=== PATIENT | male | born 1945 | race Caucasian/White ===

== ENCOUNTER → 2018-02-04 07:08 | Outpatient (CLI) | payer OTHER, SELFPAY ==
[2018-02-04 08:28] LABS: Cholesterol 174 mg/dL (140-199); HDL Cholesterol 46 mg/dL (40-60); LDL Cholesterol Calculated 105 mg/dL (<100); Triglycerides 116 mg/dL (35-150)
== END ==
PROVIDERS: PCP Family Medicine; Visit Provider Family Medicine
DX: E78.2 Mixed hyperlipidemia (principal)
CPT/HCPCS: 36415; 80061

== ENCOUNTER 2018-02-04 10:52 | Emergency (ER) | payer OTHER, SELFPAY ==
--- NOTE | 2018-02-04 10:58 | ED.MALEGU ---
HPI - Male Genitourinary General Chief complaint: Urogenital-Male Stated complaint: LUMP ON RIGHT TESTICLE Time Seen by Provider: 02/04/18 10:56 Source: patient Mode of arrival: ambulatory Limitations: no limitations History of Present Illness HPI Narrative: 72-year-old male here for evaluation of a tender mass located just above his right testicle. Patient states that all of his symptoms started several weeks ago while he was on a volunteer trip to [place]. He states that it started with scrotal swelling. That resolved and that is when he felt tenderness and a mass on his right testicle. Went to his primary doctor who diagnosed him with epididymitis and placed him on Levaquin. He states that he has completed this course of Levaquin but the mass has not resolved or improved. Denies any urinary symptoms. Denies any bowel symptoms. No prior hernia surgeries. Related Data Home Medications Medication Instructions Recorded Confirmed atorvastatin [Lipitor] 10 mg PO QPM 02/04/18 02/04/18 Previous Rx's Medication Instructions Recorded fluconazole 150 mg tablet 150 mg PO QWEEK 28 Days #4 tab 01/26/18 Allergies Allergy/AdvReac Type Severity Reaction Status Date / Time kale Allergy hives Uncoded 01/26/18 08:35 Review of Systems Constitutional Denies fever(s) Cardiovascular Denies chest pain and Denies dyspnea Respiratory Denies dyspnea Gastrointestinal Gastrointestinal: Denies abdominal pain, Denies change in bowel habits, Denies constipation, Denies diarrhea, Denies nausea and Denies vomiting Genitourinary Denies difficulty urinating, Denies dysuria, Reports scrotal swelling, Reports testicular mass, Denies urinary frequency, Denies urinary hesitancy, Denies urinary incontinence and Denies urinary urgency Musculoskeletal Denies abnormal gait, Denies myalgias and Denies arthralgias Integumentary/Breasts Denies lesions and Denies rash Neurologic Denies abnormal gait and Denies behavioral changes Psychiatric Denies behavioral changes Hematologic/Lymphatic Denies easy bleeding and Denies easy bruising [facility] Medical History Colon polyps (Chronic ~2007) Seasonal allergies (Chronic ~1972) Chicken pox (Resolved) Measles (Resolved) Surgical History Anesthesia (Resolved) History of third molar tooth extraction (~1999) History of tonsillectomy (~1949) Family History Father Stroke Social History Smoking Status: Current some day smoker Exam Initial Vital Signs Initial Vital Signs: Vital Signs Temperature 98.4 F 02/04/18 11:00 Pulse Rate 67 02/04/18 11:00 Respiratory Rate 20 02/04/18 11:00 Blood Pressure 154/96 H 02/04/18 11:00 Pulse Oximetry 95 02/04/18 11:00 Const General: cooperative, healthy appearing, comfortable, well developed, well groomed and No acute distress Orientation: alert, awake and oriented x3 HENMT Head: normal to inspection and normocephalic Resp Effort & Inspection: normal respiratory effort GI Inspection: normal to inspection and abdominal wall ecchymosis Penis: normal penis, no pustules and no swelling Other: Bilateral testes distended. Cremasteric reflex positive bilaterally. Does have a tender nodule located superior to the right testicle which does not appear to be congruent with the testicle. This is the source of his pain. Skin Lesions: no lesions Rashes: no rashes Neuro General: alert, awake and oriented x3 Extrem General: capillary refill normal Course Orders Ordered: ED Orders 02/04/18 11:14 US scrotum Stat Vital Signs - 8 hr 02/04/18 11:00 Temperature 98.4 F Pulse Rate 67 Respiratory Rate 20 Blood Pressure 154/96 H Pulse Oximetry 95 MDM - Male Genitourinary Imaging Data Testicular ultrasound: Radiologist's impression: [place] [address] Ultrasound Report Signed Patient: Marques Bailey GMR#: [id number] : 4Acct:[id number] Age/Sex: 72 / MDate of Service: 02/04/18 Loc: ED Accession Number: [id number] Procedure: US scrotum Ordering Provider: Low Dia D.O. PROCEDURE: US SCROTUM INDICATIONS: Right superior testicular mass with pain TECHNIQUE: Real-time scanning was performed of the scrotum and testicles, with image documentation. Color and pulse Doppler interrogation was performed of both testicles. COMPARISON: None. FINDINGS: Right: Testicle is normal in size at 2.6 x 3.2 x 5.2 cm, and homogenous in echotexture. Epididymis contains a lobulated cyst, with several internal cysts the largest of which measures up to 1.1 cm in dimension.. No hydrocele or varicoceles. Overlying scrotal skin is normal in thickness. Left: Testicle is normal in size at 2.1 x 3.3 x 3.7 cm, and homogeneous in echotexture. Epididymis is normal in overall size and morphology. No hydrocele there is a small left-sided varicocele. Overlying scrotal skin is normal in thickness. Doppler: Color and pulse Doppler demonstrate normal and symmetric arterial flow in both testicles. IMPRESSION: Right-sided cystic structure contains internal cysts, with an overall dimension measuring up to 1.5 cm and the largest internal cyst of 1.0 cm. Continued clinical followup is recommended and followup testicular ultrasound in 6 months is recommended unless clinically indicated sooner to assess for stability of appearance over time at the right epididymal cystic structure. Incidental load is made of a small superior left-sided varicocele that is visualized during Valsalva maneuver. Dictated by: Ramon Lezama M.D. on 02/04/2018 at 12:54 Approved by: Ramon Lezama M.D. on 02/04/2018 at 13:00 [facility] Narrative Medical decision making narrative: Ultrasound shows normal testicle on the right. His physical exam is not consistent with a an inguinal hernia. Cremaster reflex positive on the right. Doubt torsion. Discussed the ultrasound findings with the patient. He will call his primary care doctor on Wednesday to discuss urology referral. Discharge Plan Departure Patient Disposition: Home Clinical Impression: Pain, scrotum Activity Restrictions/Additional Instructions: Recommend that you contact your primary care doctor's office on Wednesday for a follow-up and to discuss the indications for referral to see Urology. Take ibuprofen/Motrin for any discomfort. Recommend that you wear supportive clothing. Return to the emergency department for any new or worsening symptoms Prescriptions: No Action fluconazole 150 mg tablet 150 mg PO QWEEK 28 Days Qty: 4 RF: 0 atorvastatin [Lipitor] 10 mg tablet 10 mg PO QPM RF: 0
[2018-02-04 11:00] VITALS: BP 154/96; PULSE 67; RESP 20; TEMP 36.9; O2SAT 95
--- NOTE | 2018-02-04 11:14 | DI.US.S_ITS ---
PROCEDURE: US SCROTUM INDICATIONS: Right superior testicular mass with pain TECHNIQUE: Real-time scanning was performed of the scrotum and testicles, with image documentation. Color and pulse Doppler interrogation was performed of both testicles. COMPARISON: None. FINDINGS: Right: Testicle is normal in size at 2.6 x 3.2 x 5.2 cm, and homogenous in echotexture. Epididymis contains a lobulated cyst, with several internal cysts the largest of which measures up to 1.1 cm in dimension.. No hydrocele or varicoceles. Overlying scrotal skin is normal in thickness. Left: Testicle is normal in size at 2.1 x 3.3 x 3.7 cm, and homogeneous in echotexture. Epididymis is normal in overall size and morphology. No hydrocele there is a small left-sided varicocele. Overlying scrotal skin is normal in thickness. Doppler: Color and pulse Doppler demonstrate normal and symmetric arterial flow in both testicles. IMPRESSION: Right-sided cystic structure contains internal cysts, with an overall dimension measuring up to 1.5 cm and the largest internal cyst of 1.0 cm. Continued clinical followup is recommended and followup testicular ultrasound in 6 months is recommended unless clinically indicated sooner to assess for stability of appearance over time at the right epididymal cystic structure. Incidental load is made of a small superior left-sided varicocele that is visualized during Valsalva maneuver. Dictated by: Ramon Lezama M.D. on 02/04/2018 at 12:54 Approved by: Ramon Lezama M.D. on 02/04/2018 at 13:00
[2018-02-04 13:31] VITALS: BP 136/80; PULSE 66; RESP 17; TEMP 36.7; O2SAT 96
== END 2018-02-04 13:33 | disposition home or self-care (01) ==
PROVIDERS: Emergency Provider Emergency Medicine; PCP Family Medicine
DX: N50.82 Scrotal pain (principal)
CPT/HCPCS: 76870; 99282; 99283

== ENCOUNTER 2018-08-24 22:28 | Emergency (ER) | payer OTHER, SELFPAY ==
[2018-08-24 22:32] VITALS: BP 160/113; PULSE 90; TEMP 36.8; O2SAT 94
[2018-08-24] MEDS: ALBUTEROL/IPRATROPIUM 3 ML AMPUL INH ×3 (22:40→23:03)
--- NOTE | 2018-08-24 22:55 | ED.ASTHMA ---
HPI - Asthma General Chief Complaint: Asthma Stated Complaint: DIFFICULTY BREATHING Time Seen by Provider: 08/24/18 22:45 Source: patient Mode of arrival: ambulatory Limitations: no limitations History of Present Illness HPI Narrative: Patient is a 73-year-old male here for evaluation of wheezing and shortness of breath. He states he does not carry a diagnosis of asthma however he states that every spring he develops wheezing. Has been using his 's albuterol. No fevers. He is on Emelia which he states normally helps his symptoms. No chest pain. No recent travel. No rashes. Related Data Previous Rx's Medication Instructions Recorded atorvastatin 10 mg tablet 10 mg PO QPM #90 tab 05/19/18 prednisone 40 mg PO DAILY 4 Days #8 tab 08/25/18 Allergies Allergy/AdvReac Type Severity Reaction Status Date / Time kale Allergy hives Uncoded 03/02/18 08:30 Review of Systems Constitutional Denies fatigue Cardiovascular Denies chest pain and Reports dyspnea Respiratory Reports dyspnea Gastrointestinal Gastrointestinal: Denies abdominal pain, Denies nausea and Denies vomiting Integumentary/Breasts Denies rash Neurologic Denies behavioral changes Psychiatric Denies behavioral changes Endocrine Denies fatigue Hematologic/Lymphatic Denies easy bleeding and Denies easy bruising Exam Initial Vital Signs Initial Vital Signs: Vital Signs Temperature 98.2 F 08/24/18 22:32 Pulse Rate 90 08/24/18 22:32 Blood Pressure 160/113 H 08/24/18 22:32 Pulse Oximetry 94 08/24/18 22:32 Const General: cooperative, well developed, well groomed and No acute distress Orientation: alert, awake and oriented x3 HENMT Head: normal to inspection and normocephalic Resp Effort & Inspection: cough, no retractions and tachypneic Auscultation: wheezes Cardio Rate: regular rate Rhythm: regular rhythm GI Inspection: non-distended Palpation: soft Skin Lesions: no lesions Rashes: no rashes Neuro General: alert, awake and oriented x3 Extrem General: normal to inspection and capillary refill normal Psych Appearance: grossly normal and well kempt [facility] Medical History Colon polyps (Chronic ~2007) Seasonal allergies (Chronic ~1972) Chicken pox (Resolved) Measles (Resolved) Surgical History Anesthesia (Resolved) History of third molar tooth extraction (~1999) History of tonsillectomy (~1949) Family History Father Stroke Social History Smoking Status: Current some day smoker Family History Father Stroke Social History Smoking Status: Current some day smoker Course Orders Ordered: Discontinued Medications Albuterol (Ventolin) 2.5 mg INH NOW ONE Stop: 08/24/18 23:03 Last Admin: 08/24/18 23:03 Dose: 2.5 mg Albuterol (Ventolin Hfa Prepack) 1 box MISC SEEINSTR ONE Stop: 08/24/18 23:40 Last Admin: 08/25/18 00:25 Dose: 1 box Albuterol/Ipratropium (Duoneb) 3 ml INH NOW ONE Stop: 08/24/18 22:52 Last Admin: 08/24/18 22:40 Dose: 3 ml Albuterol/Ipratropium (Duoneb) 3 ml INH NOW ONE Stop: 08/24/18 22:54 Last Admin: 08/24/18 22:55 Dose: 3 ml Albuterol/Ipratropium (Duoneb) 3 ml INH NOW ONE Stop: 08/24/18 23:03 Last Admin: 08/24/18 23:03 Dose: 3 ml Prednisone (Deltasone) 40 mg PO NOW ONE Stop: 08/24/18 23:40 Last Admin: 08/25/18 00:25 Dose: 40 mg Vital Signs - 8 hr 08/24/18 22:32 08/24/18 22:56 08/24/18 23:03 Temperature 98.2 F Pulse Rate 90 75 78 Respiratory Rate 14 14 Blood Pressure 160/113 H Pulse Oximetry 94 94 94 08/25/18 00:51 Temperature Pulse Rate 89 Respiratory Rate Blood Pressure 129/74 Pulse Oximetry 100 MDM - Asthma MDM Narrative Medical decision making narrative: The time I evaluated the patient he had received 3 DuoNeb someone albuterol neb. He stated that this helped his symptoms tremendously. Per report from the respiratory therapist this improved his wheezing tremendously. He did have some wheezing specially on the right when I listened to him. He was observed here in the emergency department for period of time afterwards without any return of the symptoms. He was given a dose of steroids here in the ER will send home with a prescription for these. He was also given a albuterol inhaler and AeroChamber and given instructions on its use. He was given return precautions. He expressed understanding and agreement with plan. Discharge Plan Departure Patient Disposition: Home Clinical Impression: Diffuse wheezing Discharge Date/Time: 08/25/18 00:52 Interventions: ED Discharge Assessment Last Done: 08/25/18 00:51 Instructions: DI for Reactive Airway Disease-Adult Activity Restrictions/Additional Instructions: Take the medications as directed. Contact your primary care doctor for follow-up. Return to the emergency department for any new or worsening symptoms Prescriptions: New prednisone 20 mg tablet 40 mg PO DAILY 4 Days Qty: 8 RF: 0 No Action atorvastatin [Lipitor] 10 mg tablet 10 mg PO QPM Qty: 90 RF: 1 Referrals: Nikko Jiménez MD [Primary Care Provider] -
[2018-08-24 22:56] VITALS: PULSE 75; RESP 14; O2SAT 94
[2018-08-24 23:03] VITALS: PULSE 78; RESP 14; O2SAT 94
[2018-08-24] MEDS: ALBUTEROL 2.5 MG/3 ML NEB (ADULT) INH (23:03)
[2018-08-25] MEDS: ALBUTEROL HFA PREPACK 1 BOX MISC (00:25)
[2018-08-25] MEDS: predniSONE 20 MG TABLET 40 MG PO (00:25)
[2018-08-25 00:51] VITALS: BP 129/74; PULSE 89; O2SAT 100
== END 2018-08-25 00:52 | disposition home or self-care (01) ==
PROVIDERS: Emergency Provider Emergency Medicine; Family Provider Family Medicine; PCP Family Medicine
DX: R06.2 Wheezing (principal)
CPT/HCPCS: 94640; 99282; 99284; J7613

== ENCOUNTER 2018-12-20 13:02 | Day surgery (SDC) | payer OTHER, SELFPAY ==
[2018-12-20] VITALS (8 sets, daily range): BP systolic 111–151; BP diastolic 65–90; PULSE 57–68; RESP 10–16; TEMP 36.4–37.2; O2SAT 93–94; BMI 29.5
[2018-12-20] MEDS: SODIUM CHLORIDE 0.9% 1,000 ML 100 ML IV (13:00)
--- NOTE | 2018-12-20 13:53 | PM.HP.1 ---
History of Present Illness Date Patient Seen: 12/20/18 Time Patient Seen: 13:58 Chief complaint: [id number] Narrative: 73-year-old man presents for screening colonoscopy, personal history of colon polyps last screening colonoscopy at least 10 years ago. He does not have a family history of colorectal cancer Tolerated his prep Patient History Family & Social History Social History: household members spouse Tobacco & Substance use: Smoking Status Current some day smoker Meds Home Medications Medication Instructions Recorded Confirmed Type albuterol sulfate HFA 90 2 puff INHALATION Q6H PRN 08/26/18 12/20/18 History mcg/actuation aerosol inhaler atorvastatin 10 mg tablet 10 mg PO QPM #90 tab 11/22/18 12/20/18 Rx Allergies Allergy/AdvReac Type Severity Reaction Status Date / Time kale Allergy hives Uncoded 12/20/18 13:35 Review of Systems Constitutional Constitutional: Denies fever(s) Eyes Eyes: Denies bulging eyes ENT Ears, Nose, Mouth, and Throat: No lip swelling Cardiovascular Cardiovascular: Denies generalize swelling Respiratory Respiratory: Denies stridor Gastrointestinal Gastrointestinal: Denies coffee ground emesis Musculoskeletal Musculoskeletal: Denies loss of height Integumentary/Breasts Skin/Breast: Denies wounds Neurologic Neurologic: Denies abnormal speech and Denies confusion Psychiatric Psychiatric: Denies confusion Endocrine Endocrine: Denies deepening of the voice Hematologic/Lymphatic Hematologic/Lymphatic: Denies lymphadenopathy Allergic/Immunologic Allergic/Immunologic: Denies lip swelling Exam Vital Signs (past 8 hours): - 12/20/18 13:30 Temperature 97.6 F Pulse Rate 68 Respiratory Rate 16 Blood Pressure 151/90 H Pulse Oximetry 94 Oxygen Delivery Method Room Air Const General: cooperative and healthy appearing Orientation: alert [facility] Head: normal to inspection Nose: nares normal Mouth: oral mucosae normal and lip normal Eyes Eyelids: eyelids normal Conjunctivae: conjunctivae normal Sclera: sclerae normal Neck Neck: supple and other (No thyromegally) Chest Chest: other (LCTAB , regular respiratory effort) Cardio Rhythm: regular rhythm Heart Sounds: S1 normal, S2 normal, no gallops, no murmurs and no rubs GI Other: Abdomen soft nontender nondistended Skin General: no rashes or lesions noted Neuro General: alert and awake Psych Appearance: grossly normal Affect: normal affect Assessment & Plan Assessment & Plan narrative: 73-year-old man well overdue for screening colonoscopy given prior history of colon polyps now presents for proceed Risks and benefits discussed risks including bleeding, perforation, , hypoxia, missed lesion all discussed All questions answered Patient rated proceed
--- NOTE | 2018-12-20 14:00 | P.HP_ITS ---
History of Present Illness Date Patient Seen: 12/20/18 Time Patient Seen: 13:58 Chief complaint: [id number] Narrative: 73-year-old man presents for screening colonoscopy, personal history of colon polyps last screening colonoscopy at least 10 years ago. He does not have a family history of colorectal cancer Tolerated his prep Patient History Family & Social History Social History: household members spouse Tobacco & Substance use: Smoking Status Current some day smoker Meds Home Medications Medication Instructions Recorded Confirmed Type albuterol sulfate HFA 90 2 puff INHALATION Q6H PRN 08/26/18 12/20/18 History mcg/actuation aerosol inhaler atorvastatin 10 mg tablet 10 mg PO QPM #90 tab 11/22/18 12/20/18 Rx Allergies Allergy/AdvReac Type Severity Reaction Status Date / Time kale Allergy hives Uncoded 12/20/18 13:35 Review of Systems Constitutional Constitutional: Denies fever(s) Eyes Eyes: Denies bulging eyes ENT Ears, Nose, Mouth, and Throat: No lip swelling Cardiovascular Cardiovascular: Denies generalize swelling Respiratory Respiratory: Denies stridor Gastrointestinal Gastrointestinal: Denies coffee ground emesis Musculoskeletal Musculoskeletal: Denies loss of height Integumentary/Breasts Skin/Breast: Denies wounds Neurologic Neurologic: Denies abnormal speech and Denies confusion Psychiatric Psychiatric: Denies confusion Endocrine Endocrine: Denies deepening of the voice Hematologic/Lymphatic Hematologic/Lymphatic: Denies lymphadenopathy Allergic/Immunologic Allergic/Immunologic: Denies lip swelling Exam Vital Signs (past 8 hours): - 12/20/18 13:30 Temperature 97.6 F Pulse Rate 68 Respiratory Rate 16 Blood Pressure 151/90 H Pulse Oximetry 94 Oxygen Delivery Method Room Air Const General: cooperative and healthy appearing Orientation: alert [facility] Head: normal to inspection Nose: nares normal Mouth: oral mucosae normal and lip normal Eyes Eyelids: eyelids normal Conjunctivae: conjunctivae normal Sclera: sclerae normal Neck Neck: supple and other (No thyromegally) Chest Chest: other (LCTAB , regular respiratory effort) Cardio Rhythm: regular rhythm Heart Sounds: S1 normal, S2 normal, no gallops, no murmurs and no rubs GI Other: Abdomen soft nontender nondistended Skin General: no rashes or lesions noted Neuro General: alert and awake Psych Appearance: grossly normal Affect: normal affect Assessment & Plan Assessment & Plan narrative: 73-year-old man well overdue for screening colonoscopy given prior history of colon polyps now presents for proceed Risks and benefits discussed risks including bleeding, perforation, , hypoxia, missed lesion all discussed All questions answered Patient rated proceed
[2018-12-20] MEDS: MIDAZOLAM 5 MG/5 ML VIAL IV ×2 (14:20→14:21)
[2018-12-20] MEDS: fentaNYL 250 MCG/5 ML INJ IV (14:21)
[2018-12-20] MEDS: GLUCAGON,HUMAN RECOMBINANT 1 MG/ML VIAL IV (14:43)
--- NOTE | 2018-12-20 15:08 | P.OP.ENDO_ITS ---
Operative Date/Time/Diagnoses Date of procedure: 12/20/18 Time of procedure: 15:00 Post-op diagnosis: same Procedure & Clinicians Study performed: Incomplete colonoscopy -to hepatic flexure Same procedure as scheduled: No Indications: 73-year-old man with history of colon polyps well overdue for screening colonoscopy, last well over 10 years ago Surgeon: Tobi Del Toro Procedure Notes SCOAP/Timeout: Completed Procedure in detail: Patient was taken to the endoscopy suite a time-out was completed. He was sedated over the entire course of procedure with a total of 8 mg of midazolam and 250 micro g of fentanyl. A digital rectal exam was per formed this was notable for a enlarged firm prostate without nodularity. No polyps or masses identified. 160 cm colonoscope was advanced through the anus folds of the rectum and through the colon. The colon was quite large and redundant there are multiple hairpin turns making navigation rather difficult. Eventually I was able to navigate into the triangular folds of the transverse colon. I was able to turn the corner of the hepatic flexure but not able to advance the scope beyond this due to absence of scope length. A scope stiffener was used, the patient was placed in decubitus positions as well as prone, and supine. The scope was withdrawn multiple times the level left colon and readvanced. These maneuvers failed to produce enough scope length to advance it any significance into the is ascending colon. The brief use of the ascending colon were without large masses. The scope was then slowly withdrawn visualizing from the hepatic flexure to the anus no mucosal based lesions were identified, there was a moderate amount of diverticulosis involving the transverse descending and sigmoid colons. No rectal masses Prep was adequate Scope was retroflexed in the distal rectum no additional lesions were seen Scope withdrawal time: NA Sedation minutes: 45 Findings: diverticulosis Specimen(s): none sent Complications: none Impression: Incomplete screening colonoscopy Enlarged prostate Moderate amount diverticulosis involving the transverse descending sigmoid colon Recommendations: Other recommendation (Double contrast barium enema -if this is without lesions next colonoscopy in 5 yrs) Plan for aftercare: Will need barium enema Follow up: as needed Disposition: PACU
--- NOTE | 2018-12-20 15:14 | SUR.PHASEI ---
Entered the PACU while report was being given to another RN, saw patient move extremity briefly, then returned to sleep. Has been sleeping since then. VSS.
--- NOTE | 2018-12-20 15:34 | SUR.PHASEI ---
aroused spontaneously to voice, HOB elevated, water given, denies discomfort.
--- NOTE | 2018-12-20 15:39 | SUR.PHASEI ---
Stable, drowsy, resp unlabored, prepared to go to [facility]
--- NOTE | 2018-12-20 15:55 | SUR.PHASEII ---
1550 Sitting up, talking with , reviewing report and asking appropriate questions. Told them that the dr office will be contacting them to schedule procedure. Stable
--- NOTE | 2018-12-20 16:09 | SUR.PHASEII ---
1601 To home w/; stable and pleasant. Continues to ask questions about outcome, told to call the doctors office tomorrow.
== END 2018-12-20 16:01 | disposition home or self-care (01) ==
PROVIDERS: PCP Family Medicine; Visit Provider Surgery
PROC: 0DJD8ZZ Inspection of Lower Intestinal Tract, Via Natural or Artificial Opening Endoscopic (ICD-10-PCS; CPT 45378; principal; 2018-12-20 14:00)
DX: Z86.010 Personal history of colon polyps (principal); K57.30 Diverticulosis of large intestine without perforation or abscess without bleeding
CPT/HCPCS: G0105; 99152; 99153; J1610; J2250; J3010

== ENCOUNTER → 2019-01-18 08:08 | Outpatient (CLI) | payer OTHER, SELFPAY ==
--- NOTE | 2019-01-18 08:09 | DI.RAD.S_ITS ---
PROCEDURE: FL ABDOMEN 1V (BARIUM ENEMA) INDICATIONS: Failed colonoscopy. TECHNIQUE: One view of the abdomen acquired. COMPARISON: [facility], , CHEST 2 VIEW, 09/01/2017, 10:53. FINDINGS: Surgical changes and devices: None. Bowel: Bowel gas pattern is nonobstructive. There is a moderate stool burden within the colon, predominantly within the left descending colon. Soft tissues: No suspicious abdominal calcifications. Visualized solid organ contours appear normal in size. Bones: Mild degenerative changes of the bilateral hip joints and lumbar spine. IMPRESSION: Moderate stool burden within the colon. These findings were discussed with the patient at the time of the exam in person by Dr. Chandra at approximately 8:30 AM on 01/18/19. The risks and benefits of performing the barium enema were discussed and the patient agrees to rescheduling the barium enema exam to be performed after additional bowel preparation. Dictated by: Michael Chandra M.D. on 01/18/2019 at 9:45 Approved by: Michael Chandra M.D. on 01/18/2019 at 10:29
== END ==
PROVIDERS: PCP Family Medicine; Visit Provider Surgery
DX: R93.3 Abnormal findings on diagnostic imaging of other parts of digestive tract (principal)
CPT/HCPCS: 74018

== ENCOUNTER → 2019-02-23 12:33 | Outpatient (CLI) | payer OTHER, SELFPAY ==
--- NOTE | 2019-02-23 12:35 | DI.RAD.S_ITS ---
PROCEDURE: FL BARIUM ENEMA W AIR CONTRAST INDICATIONS: screening for colon cancer. incomplete colonoscopy COMPARISON: [facility], , [place] ABDOMEN 1V (BARIUM ENEMA), 01/18/2019, 8:24. FINDINGS: The exam is limited because of severely redundant sigmoid colon. KUB: Pre-procedural bilingual instructor film demonstrates a normal bowel gas pattern. No suspicious abdominal calcifications. Visualized solid organ contours are normal in size. No suspicious bony lesions. Colon: There is suboptimal air-contrast opacification from the rectum to the cecum. No strictures, ulcers, polyps, or masses are seen. Haustral folds are normal in thickness throughout. There are scattered colonic diverticula. Reflux of contrast into the terminal ileum is present, consistent with incompetent ileocecal valve. IMPRESSION: 1. Limited examination due to severely redundant sigmoid colon. 2. No mass, polypoid lesions or stricture identified in colon. 3. Mild diverticulosis. 4. Incompetent ileocecal valve. Dictated by: Aries Naranjo M.D. on 02/23/2019 at 14:46 Approved by: Aries Naranjo M.D. on 02/23/2019 at 14:52
== END ==
PROVIDERS: PCP Family Medicine; Visit Provider Surgery
DX: Z12.11 Encounter for screening for malignant neoplasm of colon (principal); K57.30 Diverticulosis of large intestine without perforation or abscess without bleeding; Q43.8 Other specified congenital malformations of intestine
CPT/HCPCS: 74280

== ENCOUNTER → 2020-12-04 06:59 | Outpatient (CLI) | payer OTHER, SELFPAY ==
--- NOTE | 2020-12-04 07:00 | DI.US.S_ITS ---
PROCEDURE: US ABD AORTA ANEURYSM SCREEN INDICATIONS: AAA SCREEN TECHNIQUE: Real time scanning was performed of the aorta and iliac arteries, with image documentation. COMPARISON: None. FINDINGS: Aorta: Proximal aortic diameter measures 1.8 cm. Mid-aorta measures 1.6 cm. Distal aortic diameter is 1.6 cm. Iliac arteries: Right common iliac artery measures 1.1 cm. Left common iliac artery measures 1.0 cm. IMPRESSION: No aneurysm found. Dictated by: Ramon Lezama M.D. on 12/04/2020 at 10:20 Approved by: Ramon Lezama M.D. on 12/04/2020 at 10:21
== END ==
PROVIDERS: PCP Student in an Organized Health Care Education/Training Program; Referring Provider Student in an Organized Health Care Education/Training Program; Visit Provider Student in an Organized Health Care Education/Training Program
DX: Z13.6 Encounter for screening for cardiovascular disorders (principal); Z87.891 Personal history of nicotine dependence
CPT/HCPCS: 76706

== ENCOUNTER → 2022-03-16 16:07 | Outpatient (CLI) | payer OTHER, SELFPAY ==
[2022-03-16 18:10] LABS: Alanine Aminotransferase 26 IU/L (<50); Albumin 4.2 g/dL (3.5-5.0); Albumin Globulin Ratio 1.6 (1.0-2.8); Alkaline Phosphatase 50 U/L (38-126); Aspartate Aminotransferase 25 IU/L (17-59); BUN Creatinine Ratio 18.2 (6-22); Bilirubin Total 0.8 mg/dL (0.2-1.3); Blood Urea Nitrogen 16 mg/dL (9-20); Calcium 8.9 mg/dL (8.4-10.2); Carbon Dioxide 25 mmol/L (22-32); Chloride 104 mmol/L (98-107); Cholesterol 191 mg/dL (140-199); Estimated Glomerular Filt Rate > 60 mL/min (>60); Globulin 2.7 g/dL (1.7-4.1); Glucose 83 mg/dL (80-110); HDL Cholesterol 46 mg/dL (40-60); HEMOLYSIS < 15 (0-50); LDL Cholesterol Calculated 124 mg/dL (<100); Potassium 3.9 mmol/L (3.4-5.1); Sodium 138 mmol/L (137-145); Total Protein 6.9 g/dL (6.3-8.2); Triglycerides 106 mg/dL (35-150)
== END ==
PROVIDERS: PCP Student in an Organized Health Care Education/Training Program; Referring Provider Student in an Organized Health Care Education/Training Program; Visit Provider Student in an Organized Health Care Education/Training Program
DX: E78.2 Mixed hyperlipidemia (principal)
CPT/HCPCS: 36415; 80053; 80061

== ENCOUNTER → 2022-08-26 07:07 | Outpatient (CLI) | payer OTHER, SELFPAY ==
[2022-08-26 08:20] LABS: Cholesterol 203 mg/dL (140-199); HDL Cholesterol 47 mg/dL (40-60); LDL Cholesterol Calculated 128 mg/dL (<100); Triglycerides 142 mg/dL (35-150)
== END ==
PROVIDERS: PCP Student in an Organized Health Care Education/Training Program; Referring Provider Student in an Organized Health Care Education/Training Program; Visit Provider Student in an Organized Health Care Education/Training Program
DX: E78.2 Mixed hyperlipidemia (principal)
CPT/HCPCS: 36415; 80061

== ENCOUNTER → 2024-01-26 06:56 | Outpatient (CLI) | payer OTHER, SELFPAY ==
[2024-01-26 08:07] LABS: Hematocrit 48.5 % (41-53)
[2024-01-26 08:42] LABS: Alanine Aminotransferase 26 IU/L (<50); Albumin 4.3 g/dL (3.5-5.0); Alkaline Phosphatase 52 U/L (38-126); Aspartate Aminotransferase 26 IU/L (17-59); BUN Creatinine Ratio 17.5 (6-22); Bilirubin Total 0.7 mg/dL (0.2-1.3); Blood Urea Nitrogen 17 mg/dL (9-20); Calcium 9.5 mg/dL (8.4-10.2); Carbon Dioxide 22 mmol/L (22-32); Chloride 107 mmol/L (98-107); Cholesterol 250 mg/dL (140-199); Estimated Glomerular Filt Rate > 60 mL/min (>60); Globulin 2.1 g/dL (1.7-4.1); Glucose 102 mg/dL (80-110); HDL Cholesterol 42 mg/dL (40-60); HEMOLYSIS < 15 (0-50); LDL Cholesterol Calculated 167 mg/dL (<100); Potassium 4.6 mmol/L (3.4-5.1); Sodium 138 mmol/L (137-145); Total Protein 6.4 g/dL (6.3-8.2); Triglycerides 203 mg/dL (35-150)
== END ==
PROVIDERS: PCP Family Medicine; Referring Provider Family Medicine; Visit Provider Family Medicine
DX: E78.2 Mixed hyperlipidemia (principal); Z81.8 Family history of other mental and behavioral disorders
CPT/HCPCS: 36415; 80053; 80061; 85014; 85018

== ENCOUNTER 2024-09-02 20:34 | Emergency (ER) | payer OTHER, SELFPAY ==
[2024-09-02] VITALS (11 sets, daily range): BP systolic 79–166; BP diastolic 45–98; PULSE 50–72; RESP 13–28; TEMP 36.5; O2SAT 93–97; BMI 30.7
--- NOTE | 2024-09-02 20:42 | EKG_ITS ---
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
--- NOTE | 2024-09-02 20:42 | EKG_ITS ---
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
--- NOTE | 2024-09-02 20:50 | EKG_ITS ---
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
--- NOTE | 2024-09-02 20:52 | DI.RAD.S_ITS ---
PROCEDURE: XR CHEST 1V INDICATIONS: chest pain TECHNIQUE: One view of the chest was acquired. COMPARISON: (Prior imaging is not available for review from the archive at the time of this dictation.) FINDINGS: Surgical changes and devices: None. Lungs and pleura: An incomplete inspiratory result is noted, causing a crowded appearance to the lung markings. No focal infiltrates are seen. No pneumothorax or significant pleural effusions are seen. Mediastinum: The cardiac contours are within normal limits. The aorta demonstrates calcification and tortuosity. Bones and chest wall: No suspicious bony lesions. Age-appropriate bony degenerative changes are seen. Overlying soft tissues appear unremarkable. IMPRESSION: Limited portable chest examination, without a significant cardiopulmonary abnormality identified. Dictated by: John Tabares M.D. on 09/02/2024 at 20:33 Approved by: John Tabares M.D. on 09/02/2024 at 20:34
[2024-09-02 20:57] LABS: Add Manual Diff / Slide Review NO; Basophils Absolute Auto 100 /uL (0-100); Eosinophils Absolute Auto 200 /uL (0-450); Eosinophils Percent Auto 1.5 % (2-4); Hematocrit 48.3 % (41-53); Hemoglobin 16.6 g/dL (13.5-17.5); Lymphocytes Absolute Auto 4800 /uL (1100-4500); Lymphocytes Percent Auto 39.6 % (25-40); Mean Corpuscular HGB Conc 34.4 % (30-36); Monocytes Absolute Auto 1100 /uL (0-900); Monocytes Percent Auto 8.7 % (3-14); Neutrophils Absolute Auto 5900 /uL (1500-7000); Neutrophils Percent Auto 49.2 % (50-75); Platelet Count 197 X10^3/uL (150-400); Red Blood Cell Count 5.19 X10^6/uL (4.5-5.9); Red Cell Distribution Width 13.3 % (11.6-14.8); White Blood Cell Count 12.1 X10^3/uL (4.5-11.0)
[2024-09-02] MEDS: ASPIRIN 81 MG CHEW TAB 324 MG PO (20:58)
[2024-09-02] MEDS: NITROGLYCERIN 0.4 MG SL TAB SL (21:00)
--- NOTE | 2024-09-02 21:00 | PC.NURSE ---
Pt arrives to room, diaphoretic and pale. Pt reports chest pain 3/. Medicated with ASA and nitro per MD order. MD notified of low BP. Pt placed in supine position and IV fluids started. EKG done. STEMI protocols started.
--- NOTE | 2024-09-02 21:00 | ED.CHESTPAIN ---
HPI - Chest Pain General Chief Complaint: Chest Pain Stated Complaint: pressure in chest 30 mins Time Seen by Provider: 09/02/24 20:51 Source: patient and RN notes reviewed Mode of arrival: Ambulatory Limitations: no limitations History of Present Illness HPI narrative: 79-year-old male history of dyslipidemia, seasonal allergies does not take any form of anticoagulation. Patient states had some [place] food earlier this evening went for a walk develops substernal chest pressure in his forearms both feel very heavy. He states discomfort does not radiate anywhere else. States he was felt very thirsty and kind of sweaty. Denies any shortness of breath. Denies any nausea or vomiting. No lightheadedness or passing out. No new swelling in extremities. No issues with bowel movements or urination. Patient's states started about 30 minutes prior to arrival. States he takes a statin daily, vitamins and a Claritin for seasonal allergies. No aspirin or other anticoagulants. No prior cardiac history or interventions. Had a stress test 10-15 years ago. Has had prior tonsillectomy. No known drug allergies. Occasional tobacco, occasional marijuana no other recreational drugs has 3 glasses of wine daily. Family history his younger brother has had a CABG, states his father of a brain hemorrhage. Mother of dementia related complications. Related Data Previous Rx's Medication Instructions Recorded atorvastatin 20 mg tablet 20 mg PO BEDTIME #90 tabs 08/21/24 Allergies Allergy/AdvReac Type Severity Reaction Status Date / Time tree pollen Allergy Intermediate Uncoded 09/21/23 09:29 kale Allergy hives Uncoded 09/21/23 09:29 Review of Systems Review of Systems ROS Unobtainable: All systems reviewed & are unremarkable except as noted in HPI and below Patient History Medical History Tinea corporis Family history of dementia Seasonal allergies (~1972) Measles Chicken pox Colon polyps (~2007) Surgical History Anesthesia History of third molar tooth extraction (~1999) History of tonsillectomy (~194) Family History Father Stroke Social History household members: spouse Smoking Status: Current every day smoker Smoking Status: Current every day smoker tobacco type: cigarettes Alcohol type: wine Exam Narrative Exam Narrative: GENERAL: Alert and oriented x three, 79-year-old male in mild distress HEENT: Head normocephalic, atraumatic, EOMI, pupils reactive, face symmetric, moist mucous membranes NECK: Supple, full range of motion CARDIOVASCULAR: Regular rate and rhythm without murmurs, rubs or gallops. No JVD. No edema bilateral lower extremities. RESPIRATORY: Breath sounds equal bilaterally, no wheezes rales or rhonchi. ABDOMEN: Soft, nontender. Normoactive bowel sounds all 4 quadrants. No guarding or rebound, rigidity, no mass, no pulsatile mass or bruit : No CVA tenderness EXTREMITIES: Normal range of motion, no clubbing or edema. Neurovascularly intact NEUROLOGICAL: Cranial nerves II through XII grossly intact. Moving all extremities SKIN: Warm, dry, no petechiae, no rashes or lesions. Initial Vital Signs Initial Vital Signs: Vital Signs Pulse Rate 70 09/02/24 20:45 Respiratory Rate 13 09/02/24 20:45 Pulse Oximetry 96 09/02/24 20:45 Course Orders Ordered: Discontinued Medications Aspirin (Aspirin 81 Mg Chew Tab) 324 mg PO NOW ONE Stop: 09/02/24 20:53 Last Admin: 09/02/24 20:58 Dose: 324 mg Documented By: Fentanyl (Fentanyl 100 Mcg/2 Ml Inj) 50 mcg IV NOW ONE Stop: 09/02/24 21:12 Last Admin: 09/02/24 21:18 Dose: 50 mcg Documented By: Heparin Sodium (Porcine) (Heparin 5,000 Unit/Ml Vial) 6,000 unit 60 unit/kg (6000 unit) IV NOW ONE Stop: 09/02/24 21:15 Last Admin: 09/02/24 21:18 Dose: 6,000 unit Documented By: Sodium Chloride (Normal Saline 0.9%) 1,000 mls @ 1,000 mls/hr IV BOLUS ONE Stop: 09/02/24 22:10 Last Admin: 09/02/24 21:28 Dose: 1,000 mls/hr Documented By: Heparin Sodium/Dextrose (Heparin Drip) 25,000 unit in 500 mls @ 23.297 mls/hr IV CONT MEG; Protocol Last Admin: 09/02/24 21:20 Dose: 12 units/kg/hr, 23.297 mls/hr Documented By: Co-signed By: MICHAEL Nitroglycerin (Nitroglycerin 0.4 Mg Sl Tab) 0.4 mg SL [id number] PRN PRN Reason: Chest Pain Last Admin: 09/02/24 21:00 Dose: 0.4 mg Documented By: Vital Signs Vital signs: Vital Signs - 8 hr 09/02/24 20:53 Temperature 97.7 F Pulse Rate 72 Respiratory Rate 18 Blood Pressure 158/78 H Pulse Oximetry 97 Oxygen Delivery Method Room Air MDM - Chest Pain Lab Data 09/02/24 20:46 09/02/24 20:46 Labs: Lab Results 09/02/24 Range/Units 20:46 WBC 12.1 H (4.5-11.0) X10^3/uL RBC 5.19 (4.5-5.9) X10^6/uL Hgb 16.6 (13.5-17.5) g/dL Hct 48.3 (41-53) % MCV 93.0 (80-100) fL MCH 32.0 (26-34) PG MCHC 34.4 (30-36) % RDW 13.3 (11.6-14.8) % Plt Count 197 (150-400) X10^3/uL Neut % (Auto) 49.2 L (50-75) % Lymph % (Auto) 39.6 (25-40) % [place] % (Auto) 8.7 (3-14) % Eos % (Auto) 1.5 L (2-4) % Baso % (Auto) 1.0 (0-2) % Neut # (Auto) 5900 (6444-1698) /uL Lymph # (Auto) 4800 H (6971-6007) /uL [place] # (Auto) 1100 H (0-900) /uL Eos # (Auto) 200 (0-450) /uL Baso # (Auto) 100 (0-100) /uL PT 10.9 (9.4-12.5) SECONDS INR 1.0 (0.9-1.3) APTT 32 (25.1-36.5) SECONDS Sodium 139 (137-145) mmol/L Potassium 3.9 (3.4-5.1) mmol/L Chloride 107 (98-107) mmol/L Carbon Dioxide 19 L (22-32) mmol/L BUN 18 (9-20) mg/dL Creatinine 0.93 (0.66-1.25) mg/dL Estimated GFR > 60 (>60) mL/min BUN/Creatinine Ratio 19.4 (6-22) Glucose 114 H (80-110) mg/dL Calcium 9.5 (8.4-10.2) mg/dL Total Bilirubin 0.8 (0.2-1.3) mg/dL AST 33 (17-59) IU/L ALT 28 (<50) IU/L Alkaline Phosphatase 47 (38-126) U/L Total Creatine Kinase 236 H (55-170) U/L Troponin I < 0.012 (0.01-0.034) ng/mL NT-Pro-B Natriuret Pep 84 (<450) pg/mL Total Protein 7.2 (6.3-8.2) g/dL Albumin 4.7 (3.5-5.0) g/dL Globulin 2.5 (1.7-4.1) g/dL Albumin/Globulin Ratio 1.9 (1.0-2.8) Lipase 113 (23-300) U/L ECG Data Attestation: I personally reviewed and interpreted this ECG as follows: Prior ECG tracings: not available for review Interpretation: Sinus rhythm first-degree AV block rate of 71, CT 238 QRS of 102 QTC of 439, patient has a little bit of hyperacute T-waves no depression 2 3 and AVF not consistent and each beat but appears to has a little bit of elevation. No prior for comparison Repeat EKG showed rate of 69, CT 248 QRS of 98 QTC of [address] change but concerning. Thirty EKG shows clear ST elevation 2 3 and AVF as well as lateral leads rate of 57 CT 216 QRS of 102 QTC of 453. MDM Narrative Medical decision making narrative: EKG shows hyperacute type changes but not clear ST elevation consistently [id number] we will repeat after nitro to see for any dynamic changes. Chest x-ray, no acute change. Lab labs show white count of 12 hemoglobin of 16 platelets of 197. Chemistries and troponin are pending. Patient had aspirin, nitro sublingual. Repeat EKG shows clear ST elevation patient had heparin drip initiated. 79-year-old male comes in with complaint of substernal chest discomfort with radiation to arms little bit of diaphoresis and nausea. Patient is well-appearing initially on exam but history is concerning for cardiac source. Repeat EKG shows new elevation, STEMI activated. Patient states after the nitro chest pains little bit better but not completely resolved. Spoke with Dr. Bello at [facility] who accepts for transfer for STEMI. EKGs were transmitted by faxed as well as touch through charge phone. She accepts for transfer at this time. Critical Care Time Critical Care Time Critical Care Time: Yes Total Critical Care Time: 25 Attestation: The high probability of a clinically significant, sudden or life threatening deterioration of the cardiac system(s) required my full and direct attention, intervention and personal management. The aggregate critical care time was [--] minutes. This time is in addition to time spent performing reported procedures but includes the following: [x] Data Review and interpretation [x] Patient assessment and monitoring of vital signs [x] Documentation [x] Medication orders and management Discharge Plan Departure Patient Disposition: [facility] Clinical Impression: ST elevation (STEMI) myocardial infarction Prescriptions: No Action atorvastatin 20 mg tablet 20 mg PO BEDTIME Qty: 90 0RF Rx Instructions: Due for appointment prior to additional refills Referrals: Nicholas Saha MD [Primary Care Provider] -
[2024-09-02 21:06] LABS: Alanine Aminotransferase 28 IU/L (<50); Albumin 4.7 g/dL (3.5-5.0); Albumin Globulin Ratio 1.9 (1.0-2.8); Alkaline Phosphatase 47 U/L (38-126); Aspartate Aminotransferase 33 IU/L (17-59); BUN Creatinine Ratio 19.4 (6-22); Bilirubin Total 0.8 mg/dL (0.2-1.3); Blood Urea Nitrogen 18 mg/dL (9-20); Calcium 9.5 mg/dL (8.4-10.2); Carbon Dioxide 19 mmol/L (22-32); Chloride 107 mmol/L (98-107); Creatine Kinase 236 U/L (55-170); Estimated Glomerular Filt Rate > 60 mL/min (>60); Globulin 2.5 g/dL (1.7-4.1); Glucose 114 mg/dL (80-110); HEMOLYSIS 18 (0-50); Lipase 113 U/L (23-300); Potassium 3.9 mmol/L (3.4-5.1); Prothrombin Time 10.9 SECONDS (9.4-12.5); Sodium 139 mmol/L (137-145); Total Protein 7.2 g/dL (6.3-8.2)
[2024-09-02 21:09] LABS: PTT Partial Thromboplastin Tim 32 SECONDS (25.1-36.5)
--- NOTE | 2024-09-02 21:13 | EKG_ITS ---
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
[2024-09-02 21:18] LABS: NT-proBNP (BNP-Adult 18+) 84 pg/mL (<450); Troponin I < 0.012 ng/mL (0.01-0.034)
[2024-09-02] MEDS: fentaNYL 100 MCG/2 ML INJ 50 MCG IV (21:18)
[2024-09-02] MEDS: HEPARIN 5,000 UNIT/ML VIAL 6000 UNIT IV (21:18)
[2024-09-02] MEDS: HEPARIN DRIP 25,000 UNIT/500 ML IV.SOLN 23.297 UNIT IV (21:20)
[2024-09-02] MEDS: SODIUM CHLORIDE 0.9% 1,000 ML 1000 ML IV (21:28)
== END 2024-09-02 21:45 | disposition short-term general hospital (02) ==
PROVIDERS: Emergency Provider Emergency Medicine; PCP Family Medicine
DX: I21.3 ST elevation (STEMI) myocardial infarction of unspecified site (principal); E78.5 Hyperlipidemia, unspecified
CPT/HCPCS: 36415; 71045; 80053; 82550; 83690; 83880; 84484; 85025; 85610; 85730; 93005; 96365; 96375; 99284; 99291; J1644; J3010

== ENCOUNTER → 2024-11-23 12:41 | Outpatient (CLI) | payer OTHER, SELFPAY ==
--- NOTE | 2024-11-23 12:42 | DI.ECHO.S_ITS ---
[facility]+ [facility] : : [address] : : [place] : : [id number] : : Phone: [phone] Echocardiogram Report + + :Name: DAGO GARZA Study Date: 11/23/2024 Height: 70 in : :Hospital ReadingLocation: Weight: 214 lb : : Gender: Male BSA: 2.1 m2 : :: 1945 Age: 79 yrs BP: 138/82 mmHg: :Reason For Study: CAD : :Ordering Physician: KIM, : :VIRA Performed By: Nicholas Eldridge : :Referring: VIRA ALVAREZ : + + Interpretation Summary 1. The left ventricular contractility is abnormal. Overall ejection fraction is greater than 55%. However there is slight hypokinesis in the basal to mid lateral segment. No LVH. Unable to comment on diastolic function. The left ventricle is of normal size. 2. In limited views, the right ventricular contractility appears to be preserved. 3. Mild aortic insufficiency. 4. No obvious intracardiac masses nor thrombi. 5. No hemodynamically significant pericardial effusion. 6. Low right-sided filling pressures. Conclusion: Normal left ventricular systolic function with mild aortic insufficiency. When compared with previous echocardiogram, no significant changes have occurred. Procedure: A two-dimensional transthoracic echocardiogram with color flow and Doppler was performed in limited views only. The study quality was technically good. Comparison is made with the echocardiogram of 09/03/24. The patient was in normal sinus rhythm during the exam. Left Ventricle: Left ventricular wall thickness is mildly increased. The left ventricle is normal in size. The ejection fraction is estimated to be 55- 60%. Mitral Valve: The mitral valve leaflets appear mildly thickened, but open well. There is no mitral regurgitation noted. Aortic Valve: The aortic valve is trileaflet. The aortic valve opens well. There is mild aortic regurgitation. Tricuspid Valve: The tricuspid valve leaflets are thin and pliable. There is trace tricuspid regurgitation. Pulmonic Valve: The pulmonic valve is not well visualized. There is no pulmonic valvular regurgitation. Great Vessels: The aortic root is mildly dilated. The IVC is of normal diameter and collapses greater than 50% with a sniff. This suggests a low right atrial pressure of 3 mm Hg. Pericardium/ Pleura There is no pericardial effusion. There is no pleural effusion. MMode/2D Measurements & Calculations LVIDd: 4.3 cm Ao root diam: 4.0 cm LVIDs: 3.0 cm FS: 29.9 % EPSS: 1.4 cm IVSd: 1.1 cm LVPWd: 1.1 cm LV lai. diameter/BSA (cm/m^2): 2.0 LV sys. diameter/BSA (cm/m^2): 1.4 IVC diam: 1.6 cm Doppler Measurements & Calculations AI P1/2t: 428.3 msec TR max benton: 220.2 cm/sec AI dec slope: 334.9 cm/sec2 TR max P.4 mmHg Reading Physician:YAMEL
== END ==
PROVIDERS: PCP Family Medicine; Referring Provider Nurse Practitioner Acute Care; Visit Provider Nurse Practitioner Acute Care
DX: I35.1 Nonrheumatic aortic (valve) insufficiency (principal); I77.810 Thoracic aortic ectasia; I25.10 Atherosclerotic heart disease of native coronary artery without angina pectoris
CPT/HCPCS: 93307

== ENCOUNTER → 2024-12-04 06:48 | Outpatient (CLI) | payer OTHER, SELFPAY ==
[2024-12-04 08:07] LABS: Alanine Aminotransferase 25 IU/L (<50); Albumin 4.3 g/dL (3.5-5.0); Albumin Globulin Ratio 2.0 (1.0-2.8); Alkaline Phosphatase 42 U/L (38-126); Blood Urea Nitrogen 17 mg/dL (9-20); Calcium 9.1 mg/dL (8.4-10.2); Carbon Dioxide 25 mmol/L (22-32); Chloride 106 mmol/L (98-107); Cholesterol 127 mg/dL (140-199); Estimated Glomerular Filt Rate > 60 mL/min (>60); Globulin 2.1 g/dL (1.7-4.1); Glucose 117 mg/dL (70-99); HDL Cholesterol 39 mg/dL (40-60); HEMOLYSIS < 15 (0-50); Potassium 4.3 mmol/L (3.4-5.1); Sodium 138 mmol/L (137-145); Total Protein 6.4 g/dL (6.3-8.2); Triglycerides 102 mg/dL (35-150)
== END ==
PROVIDERS: PCP Family Medicine; Referring Provider Nurse Practitioner Acute Care; Visit Provider Nurse Practitioner Acute Care
DX: I25.10 Atherosclerotic heart disease of native coronary artery without angina pectoris (principal)
CPT/HCPCS: 36415; 80053; 80061